=== PATIENT | female | born 1960 | race Two or more races ===

== ENCOUNTER 2016-10-20 09:22 | Inpatient (IN) | payer OTHER ==
[2016-10-13 11:41] VITALS: BMI 25.1
[~2016-10-20 09:22] MED LIST: CELECOXIB 200 MG CAPSULE PO ONE; GABAPENTIN 300 MG CAPSULE (FP) PO ONE; ONDANSETRON 4 MG/2 ML VIAL IVPUSH PRN; ROPIVACAINE 0.2% 400ML 400 ML ML NR ONE; ROPIVICAINE 0.2%/MORPH PF/KETOROLAC - 51ML DISP.SYRINGE IA ONE; TRANEXAMIC ACID 1000 MG/10 ML VIAL IVPUSH ONE; oxyCODONE HCL 5 MG TABLET PO PRN
[2016-10-20] MEDS ORDERED: CELECOXIB 200 MG CAPSULE ONE (11:03)
[2016-10-20] MEDS ORDERED: CEFAZOLIN 2 GM in DEXTROSE 5%-WATER - 50 ML IVPB ONE (12:30)
[2016-10-20] MEDS ORDERED: DEXAMETHASONE SOD PHOSPHATE/PF 10 MG/ML SDV ONE (12:53)
[2016-10-20] MEDS ORDERED: SODIUM CHLORIDE 0.9% P/F 10 ML VIAL IJ ONE (12:53)
[2016-10-20] MEDS ORDERED: BUPIVACAINE HCL/PF (5 MG/ML) 30 ML VIAL IJ ONE (12:53)
[2016-10-20] MEDS ORDERED: MIDAZOLAM HCL 2 MG/2 ML SINGLE DOSE VIAL ONE (12:53)
[2016-10-20] MEDS ORDERED: ROPIVACAINE HCL 0.5% 30ML VIAL ONE (13:26)
[2016-10-20] MEDS ORDERED: ROPIVICAINE 0.2%/MORPH PF/KETOROLAC - 51ML DISP.SYRINGE IA ONE ×3 (13:40→16:34)
[2016-10-20] MEDS ORDERED: TRANEXAMIC ACID 1000 MG/10 ML VIAL ONE ×3 (13:40→14:06)
[2016-10-20] MEDS ORDERED: ceFAZolin SODIUM 1 GM VIAL ONE (14:06)
[2016-10-20] MEDS ORDERED: TRANEXAMIC ACID 1000 MG/10 ML VIAL IVPB ONE ×2 (15:05→16:34)
[2016-10-20] MEDS ORDERED: MAG HYDROX/AL HYDROX/SIMETH 30 ML UNIT-DOSE CUP PO PRN (17:38)
[2016-10-20] MEDS ORDERED: MAGNESIUM HYDROX 2400MG/30ML ORAL SUSPENSION 30 ML CUP PO PRN (17:38)
[2016-10-20] MEDS ORDERED: LACTATED RINGERS SOLUTION 1,000 ML IV SCH (17:45)
[2016-10-20] MEDS: LACTATED RINGERS SOLUTION 1,000 ML IV SCH (18:14)
[2016-10-20] MEDS: ACETAMINOPHEN 325 MG TABLET (FP) PO SCH ×2 (18:14→20:56)
[2016-10-20] MEDS: ONDANSETRON 4 MG/2 ML VIAL IVPB PRN (18:43)
[2016-10-20] MEDS ORDERED: TRANEXAMIC ACID 1000 MG/10 ML VIAL IVPUSH ONE (19:00)
[2016-10-20] MEDS: CEFAZOLIN 1 GM/D5W 50 ML IVPB SCH (20:57)
[2016-10-20] MEDS: ASCORBIC ACID 500 MG TABLET (FP) PO SCH (21:33)
[2016-10-20] MEDS: ATORVASTATIN CA 40 MG TABLET (FP) PO SCH (21:33)
[2016-10-20] MEDS: oxyCODONE HCL 10 MG SUSTAINED ACTING TABLET PO SCH (21:33)
[2016-10-20] MEDS: GLIMEPIRIDE 2 MG TABLET (FP) PO SCH (21:33)
[2016-10-20] MEDS: LISINOPRIL 5 MG TABLET (FP) PO SCH (21:33)
[2016-10-20] MEDS: FERROUS SO4 325 MG TABLET (FP) PO SCH (21:33)
[2016-10-20] MEDS: CELECOXIB 200 MG CAPSULE PO SCH (21:33)
[2016-10-20] MEDS: SENNOSIDES/DOCUSATE COMBO (SENNA PLUS) TABLET (UD) PO SCH (21:34)
[2016-10-20] MEDS: GABAPENTIN 300 MG CAPSULE (FP) PO SCH ×2 (21:34→21:35)
[2016-10-20] MEDS: INSULIN SLIDING SCALE (NOVOLOG) 1 VIAL SQ SCH (21:38)
[2016-10-20] MEDS ORDERED: ONDANSETRON 4 MG/2 ML VIAL IVPUSH ONE (21:51)
--- NOTE | 2016-10-20 21:52 | CONSULT ---
Consultation: REQUESTING PROVIDER: Dr. Serrano CONSULT REQUEST: We have been asked to medically evaluate this patient for ( Medical Management). HISTORY OF PRESENT ILLNESS: This is a 56 y/o female with a PMHx of: DM, HTN, HLD. s/p L-TKR POD #0. Patient is AAOx3, reports nausea and vomiting x 1 when arrived to floor. Patient reports pain to surgical site 8/10. Patient reports full sensation to lower extremity. Patient reports voiding, no flatulence no BM. Patient denies fever, chills, cough, dizziness, SOB, CP, AP, diarrhea, dysuria. PAST MEDICAL HISTORY: DM HTN HLD PAST SURGICAL HISTORY: Right Knee Arthroscopy SOCIAL HISTORY: Tobacco: Never Alcohol: None Drugs: None Lives with spouse FAMILY HISTORY: Non- Contributory ALLERGIES: 3 Allergy/AdvReac Type Severity Reaction Status Date / Time No Known Allergies Allergy Verified 10/13/16 11:33 HOME MEDICATIONS: 3 Medication Instructions Recorded Atorvastatin Ca [Lipitor] 40 mg PO HS 10/13/16 Calcium Crb,Cit/D3/Min34/Norris 1 each PO DAILY 10/13/16 [Citracal + Bone Density Tablet] Glimepiride [Amaryl -] 4 mg PO HS 10/13/16 Lisinopril 5 mg PO HS 10/13/16 Metformin HCl [Metformin HCl ER] 1,000 mg PO BID 10/13/16 Multivits,Ca,Minerals/Iron/FA 1 each PO DAILY 10/13/16 [Women's Daily Formula Caplet] REVIEW OF SYSTEMS: CONSTITUTIONAL: Absent: fever, chills, diaphoresis, generalized weakness, malaise, loss of appetite, weight change HEENT: Absent: rhinorrhea, nasal congestion, throat pain, throat swelling, difficulty swallowing, mouth swelling, ear pain, eye pain, visual changes CARDIOVASCULAR: Absent: chest pain, syncope, palpitations, irregular heart rate, lightheadedness , peripheral edema RESPIRATORY: Absent: cough, shortness of breath, dyspnea with exertion, orthopnea, wheezing, stridor, hemoptysis GASTROINTESTINAL: nausea, vomiting Absent: abdominal pain, abdominal distension, diarrhea, constipation, melena, hematochezia GENITOURINARY: Absent: dysuria, frequency, urgency, hesitancy, hematuria, flank pain, genital pain MUSCULOSKELETAL: left knee pain Absent: myalgia, arthralgia, joint swelling, back pain, neck pain SKIN: Absent: rash, itching, pallor HEMATOLOGIC/IMMUNOLOGIC: Absent: easy bleeding, easy bruising, lymphadenopathy, frequent infections ENDOCRINE: Absent: unexplained weight gain, unexplained weight loss, heat intolerance, cold intolerance NEUROLOGIC: Absent: headache, focal weakness or paresthesias, dizziness, unsteady gait, seizure, mental status changes, bladder or bowel incontinence PSYCHIATRIC: Absent: anxiety, depression, suicidal or homicidal ideation, hallucinations. PHYSICAL EXAMINATION Vital Signs - 24 hr 3 10/20/16 10/20/16 10/20/16 11:16 11:20 11:42 Temperature 98.2 F 98.2 F Pulse Rate 83 83 Respiratory 18 18 Rate Blood Pressure 146/76 146/76 O2 Sat by Pulse 99 Oximetry (%) 10/20/16 10/20/16 10/20/16 17:35 17:40 17:45 Temperature 97.7 F 97.7 F 97.7 F Pulse Rate 61 62 63 Respiratory 11 L 1 L 12 Rate Blood Pressure 140/65 141/48 136/57 O2 Sat by Pulse 100 100 Oximetry (%) 10/20/16 10/20/16 10/20/16 17:50 18:05 18:20 Temperature 97.7 F 97.7 F 97.7 F Pulse Rate 67 61 65 Respiratory 12 12 14 Rate Blood Pressure 131/58 134/65 118/51 O2 Sat by Pulse 100 100 100 Oximetry (%) 10/20/16 10/20/16 10/20/16 18:35 18:46 18:48 Temperature 97.7 F 97.7 F 97.7 F Pulse Rate 66 64 61 Respiratory 12 18 18 Rate Blood Pressure 123/57 135/60 135/60 O2 Sat by Pulse 100 99 99 Oximetry (%) GENERAL: Awake, alert, and fully oriented, in no acute distress. HEAD: Normal with no signs of trauma. EYES: Pupils equal, round and reactive to light, extraocular movements intact, sclera anicteric, conjunctiva clear. No lid lag. EARS, NOSE, THROAT: Ears normal, nares patent, oropharynx clear without exudates. Moist mucous membranes. NECK: Normal range of motion, supple without lymphadenopathy, JVD, or masses. LUNGS: Breath sounds equal, clear to auscultation bilaterally. No wheezes, and no crackles. No accessory muscle use. HEART: Regular rate and rhythm, normal S1 and S2 without murmur, rub or gallop. ABDOMEN: Soft, nontender, not distended, hypoactive bowel sounds, no guarding, no rebound, no masses. No hepatomegaly or splenomegaly. MUSCULOSKELETAL: LROM LLE. LLE tenderness to palpation. Surgical dressing dry and intact. Normal range of motion at RUE, RLE, LUE joints. No bony deformities. No CVA tenderness. UPPER EXTREMITIES: 2+ pulses, warm, well-perfused. No cyanosis. No clubbing. Cap refill <2 seconds. No peripheral edema. LOWER EXTREMITIES: 2+ pulses, warm, well-perfused. No calf tenderness. No peripheral edema. NEUROLOGICAL: Cranial nerves II-XII intact. Normal speech. Gait not observed. PSYCHIATRIC: Cooperative. Good eye contact. Appropriate mood and affect. SKIN: Warm, dry, normal turgor, no rashes or lesions noted. Laboratory Results - last 24 hr 10/20/16 10/20/16 11:27 18:43 POC Glucometer 128 267 Active Medications Generic Name Dose Route Start Last Admin Trade Name Freq PRN Reason Stop Dose Admin Acetaminophen 650 mg 10/20/16 09:15 10/20/16 20:56 Tylenol - PO 10/23/16 09:14 650 mg Q6H AMANDA Administration Al Hydroxide/Mg Hydroxide 30 ml 10/20/16 17:38 10/20/16 21:35 Mylanta Oral Suspension - PO 30 ml Q4H PRN Administration DYSPEPSIA Ascorbic Acid 500 mg 10/20/16 22:00 10/20/16 21:33 Vitamin C - PO 500 mg BID AMANDA Administration Aspirin 325 mg 10/21/16 08:00 Asa - PO DAILY@0800 AMANDA Atorvastatin Calcium 40 mg 10/20/16 22:00 10/20/16 21:33 Lipitor - PO 40 mg HS AMANDA Administration Calcium Carbonate/Cholecalciferol 1 tab 10/21/16 10:00 Os-Eriberto 500+D - PO DAILY AMANDA Celecoxib 200 mg 10/20/16 22:00 10/20/16 21:33 Celebrex - PO 200 mg BID AMANDA Administration Fentanyl 25 mcg 10/20/16 09:13 Sublimaze Injection - IVPUSH 10/23/16 09:14 [id number] PRN PAIN Ferrous Sulfate 325 mg 10/20/16 22:00 10/20/16 21:33 Feosol - PO 325 mg BID AMANDA Administration Gabapentin 300 mg 10/20/16 22:00 10/20/16 21:34 Neurontin - PO 300 mg BID AMANDA Administration Gabapentin 300 mg 10/20/16 22:00 10/20/16 21:35 Neurontin - PO 10/23/16 21:59 300 mg BID AMANDA Administration Glimepiride 4 mg 10/20/16 22:00 10/20/16 21:33 Amaryl - PO 4 mg HS AMANDA Administration Lactated Ringer's 1,000 mls @ 125 mls/hr 10/20/16 09:15 10/20/16 18:14 Lactated Ringers Solution IV Not Given ASDIR AMANDA Cefazolin Sodium 50 mls @ 100 mls/hr 10/20/16 21:30 10/20/16 20:57 Ancef 1 Gm Premixed Ivpb - IVPB 10/21/16 05:59 100 mls/hr Q8H AMANDA Administration Lactated Ringer's 1,000 mls @ 125 mls/hr 10/20/16 17:45 10/20/16 18:15 Lactated Ringers Solution IV 10/21/16 06:00 Not Given ASDIR AMANDA Insulin Aspart 1 vial 10/20/16 22:00 10/20/16 21:38 Novolog Vial Sliding Scale - SQ 4 units ACHS AMANDA Administration Protocol Lisinopril 5 mg 10/20/16 22:00 10/20/16 21:33 Prinivil PO 5 mg HS AMANDA Administration Magnesium Hydroxide 30 ml 10/20/16 17:38 Milk Of Magnesia - PO PRN PRN CONSTIPATION Metformin HCl 1,000 mg 10/21/16 07:00 Glucophage - PO BIDAC AMANDA Multivitamins/Minerals 1 each 10/21/16 10:00 Theragran-M PO DAILY AMANDA Multivitamins/Minerals/Vitamin C 1 tab 10/21/16 10:00 Tab-A-Vit - PO DAILY AMANDA Ondansetron HCl 4 mg 10/20/16 17:38 10/20/16 18:43 Zofran Injection IVPB 4 mg Q6H PRN Administration NAUSEA Oxycodone HCl 10 mg 10/20/16 22:00 10/20/16 21:33 Oxycontin - PO 10/23/16 21:59 10 mg BID AMANDA Administration Oxycodone HCl 5 mg 10/20/16 09:14 Roxicodone - PO 10/23/16 09:14 Q4H PRN PAIN Oxycodone HCl 10 mg 10/20/16 09:14 Roxicodone - PO 10/23/16 09:15 Q4H PRN PAIN Pantoprazole Sodium 40 mg 10/21/16 10:00 Protonix - PO DAILY AMANDA Senna/Docusate Sodium 1 tablet 10/20/16 22:00 10/20/16 21:34 Pericolace - PO 1 tablet BID AMANDA Administration ASSESSMENT/PLAN: This is a 56 y/o female with a PMHx of: DM, HTN, HLD. s/p L- TKR POD #0. 1. Continue Ortho Regimen 2. Monitor BGMs 3. Continue home meds 4. Monitor CBC, BMP 5. PT 6. Incentive Spirometer Dispo: We will continue to follow the patient. Thank you for this consultative opportunity. Problem List - Problems (1) Status post left knee replacement Code(s): Z96.652 - PRESENCE OF LEFT ARTIFICIAL KNEE JOINT (2) Diabetes mellitus Code(s): E11.9 - TYPE 2 DIABETES MELLITUS WITHOUT COMPLICATIONS (3) HTN (hypertension) Code(s): I10 - ESSENTIAL (PRIMARY) HYPERTENSION (4) Hyperlipidemia Code(s): E78.5 - HYPERLIPIDEMIA, UNSPECIFIED (5) DVT prophylaxis Code(s): MQZ7408 - Visit type - Emergency Visit Emergency Visit: No - New Patient This patient is new to me today: Yes Date on this admission: 10/20/16 - Critical Care Critical Care patient: No
[2016-10-20] MEDS: oxyCODONE HCL 5 MG TABLET PO PRN (22:14)
[2016-10-21] MEDS: ACETAMINOPHEN 325 MG TABLET (FP) PO SCH ×4 (03:19→21:15)
[2016-10-21] MEDS: oxyCODONE HCL 5 MG TABLET PO PRN ×3 (04:17→21:15)
[2016-10-21] MEDS: CEFAZOLIN 1 GM/D5W 50 ML IVPB SCH (05:34)
[2016-10-21] MEDS: INSULIN SLIDING SCALE (NOVOLOG) 1 VIAL SQ SCH ×3 (06:22→21:36)
[2016-10-21 08:23] LABS: ANION GAP 8 (8-16); CO2 23 mmol/L (22-28); CREATININE 0.6 mg/dl (0.6-1.3); GLUCOSE,RANDOM 188 mg/dl (74-106)
[2016-10-21 08:35] LABS: MCH 27.3 pg (25.7-33.7); MCHC 33.2 g/dl (32.0-36.0); MEAN CELL VOLUME 82.3 fl (80-96); PLATELET COUNT 177 K/MM3 (134-434); RDW 12.8 % (11.6-15.6); WHITE BLOOD COUNT 13.6 K/mm3 (4.0-10.8)
--- NOTE | 2016-10-21 09:25 | PN ---
[id number]: patient is a 56 y/o female with a PMHx of: DM, HTN, HLD. patient is s/p L-TKR POD # 1 ([place]) Vital Signs Period Temp Pulse Resp BP Sys/Lewis Pulse Ox Last 24 Hr 97.7 F-98.2 F 59-83 1-18 111-146/48-76 98-100 GENERAL: The patient is awake, alert, and fully oriented, in no acute distress. HEAD: Normal with no signs of trauma. EYES: PERRL, extraocular movements intact, sclera anicteric, conjunctiva clear. No ptosis. ENT: Ears normal, nares patent, oropharynx clear without exudates, moist mucous membranes. NECK: Trachea midline, full range of motion, supple. LUNGS: Breath sounds equal, clear to auscultation bilaterally, no wheezes, no crackles, no accessory muscle use. HEART: Regular rate and rhythm, S1, S2 without murmur, rub or gallop. ABDOMEN: Soft, nontender, nondistended, normoactive bowel sounds, no guarding, no rebound, no hepatosplenomegaly, no masses. EXTREMITIES: 2+ pulses, warm, well-perfused, no edema. LEFT LOWER EXTREMITY: PHYSICAL DRESSING CLEAN DRY AND INTACT LESS THAN 3 SECOND CAPILLARY REFILL LESS FOR PULSE. pATIENT ABLE TO MOVE THE DIGITS OF THE FOOT WITHOUT ANY DIFFICULTY. NEUROLOGICAL: Cranial nerves II through XII grossly intact. Normal speech, gait not observed. PSYCH: Normal mood, normal affect. SKIN: Warm, dry, normal turgor, no rashes or lesions noted Laboratory Results - last 24 hr 10/20/16 10/20/16 10/20/16 11:27 18:43 21:31 WBC RBC Hgb Hct MCV MCHC RDW Plt Count MPV Sodium Potassium Chloride Carbon Dioxide Anion Gap BUN Creatinine POC Glucometer 128 267 230 Random Glucose Calcium 10/21/16 10/21/16 10/21/16 06:20 07:50 07:50 WBC 13.6 H RBC 3.89 Hgb 10.6 L Hct 32.0 L MCV 82.3 MCHC 33.2 RDW 12.8 Plt Count 177 MPV 11.0 Sodium 131 L Potassium 4.4 Chloride 100 Carbon Dioxide 23 Anion Gap 8 BUN 11 Creatinine 0.6 POC Glucometer 147 Random Glucose 188 H Calcium 9.0 Active Medications Generic Name Dose Route Start Last Admin Trade Name New PRN Reason Stop Dose Admin Acetaminophen 650 mg 10/20/16 09:15 10/21/16 03:19 Tylenol - PO 10/23/16 09:14 Not Given Q6H AMANDA Al Hydroxide/Mg Hydroxide 30 ml 10/20/16 17:38 10/20/16 21:35 Mylanta Oral Suspension - PO 30 ml Q4H PRN Administration DYSPEPSIA Ascorbic Acid 500 mg 10/20/16 22:00 10/20/16 21:33 Vitamin C - PO 500 mg BID AMANDA Administration Aspirin 325 mg 10/21/16 08:00 Asa - PO DAILY@0800 AMANDA Atorvastatin Calcium 40 mg 10/20/16 22:00 10/20/16 21:33 Lipitor - PO 40 mg HS AMANDA Administration Calcium Carbonate/Cholecalciferol 1 tab 10/21/16 10:00 Os-Eriberto 500+D - PO DAILY AMANDA Celecoxib 200 mg 10/20/16 22:00 10/20/16 21:33 Celebrex - PO 200 mg BID AMANDA Administration Fentanyl 25 mcg 10/20/16 09:13 Sublimaze Injection - IVPUSH 10/23/16 09:14 [id number] PRN PAIN Ferrous Sulfate 325 mg 10/20/16 22:00 10/20/16 21:33 Feosol - PO 325 mg BID AMANDA Administration Gabapentin 300 mg 10/20/16 22:00 10/20/16 21:34 Neurontin - PO 300 mg BID AMANDA Administration Gabapentin 300 mg 10/20/16 22:00 10/20/16 21:35 Neurontin - PO 10/23/16 21:59 300 mg BID AMANDA Administration Glimepiride 4 mg 10/20/16 22:00 10/20/16 21:33 Amaryl - PO 4 mg HS AMANDA Administration Lactated Ringer's 1,000 mls @ 125 mls/hr 10/20/16 09:15 10/20/16 18:14 Lactated Ringers Solution IV Not Given ASDIR [facility] Insulin Aspart 1 vial 10/20/16 22:00 10/21/16 06:22 Novolog Vial Sliding Scale - SQ Not Given ACHS [facility] Protocol Lisinopril 5 mg 10/20/16 22:00 10/20/16 21:33 Prinivil PO 5 mg HS AMANDA Administration Magnesium Hydroxide 30 ml 10/20/16 17:38 Milk Of Magnesia - PO PRN PRN CONSTIPATION Metformin HCl 1,000 mg 10/21/16 07:00 Glucophage - PO BIDAC AMANDA Multivitamins/Minerals 1 each 10/21/16 10:00 Theragran-M PO DAILY AMANDA Multivitamins/Minerals/Vitamin C 1 tab 10/21/16 10:00 Tab-A-Vit - PO DAILY AMANDA Ondansetron HCl 4 mg 10/20/16 17:38 10/20/16 18:43 Zofran Injection IVPB 4 mg Q6H PRN Administration NAUSEA Oxycodone HCl 10 mg 10/20/16 22:00 10/20/16 21:33 Oxycontin - PO 10/23/16 21:59 10 mg BID AMANDA Administration Oxycodone HCl 5 mg 10/20/16 09:14 Roxicodone - PO 10/23/16 09:14 Q4H PRN PAIN Oxycodone HCl 10 mg 10/20/16 09:14 10/21/16 04:17 Roxicodone - PO 10/23/16 09:15 10 mg Q4H PRN Administration PAIN Pantoprazole Sodium 40 mg 10/21/16 10:00 Protonix - PO DAILY [facility] Senna/Docusate Sodium 1 tablet 10/20/16 22:00 10/20/16 21:34 Pericolace - PO 1 tablet BID AMANDA Administration ASSESSMENT/PLAN: 1) ms s/p left TKR, pod #1 - physical therapy as per orthopedist - Continue incentive spirometry - When necessary pain medication 2) endo niddm - Fingersticks before meals and at bedtime with regular insulin coverage - continue glucophage F/E/N - Diabetic diet ppx - DVT PPX as per ortho - protonix - oob - scd/salud Dispo: We will continue to follow the patient. Thank you for this consultative opportunity. Visit type - Emergency Visit Emergency Visit: Yes ED Registration Date: 10/20/16 Care time: The patient presented to the Emergency Department on the above date and was hospitalized for further evaluation of their emergent condition. - New Patient This patient is new to me today: No - Critical Care Critical Care patient: No - Discharge Referral Referred to [facility] Med P.C.: No
[2016-10-21] MEDS: oxyCODONE HCL 10 MG SUSTAINED ACTING TABLET PO SCH ×2 (09:29→21:16)
[2016-10-21] MEDS: ASPIRIN 325 MG TABLET PO SCH (09:30)
[2016-10-21] MEDS: ONDANSETRON 4 MG/2 ML VIAL IVPB PRN ×2 (09:31→19:53)
[2016-10-21] MEDS: CELECOXIB 200 MG CAPSULE PO SCH ×2 (09:35→21:13)
[2016-10-21] MEDS: GABAPENTIN 300 MG CAPSULE (FP) PO SCH ×3 (09:36→22:08)
[2016-10-21] MEDS: CALCIUM 500MG/VIT-D 200 UNITS COMBO TABLET (FP) PO SCH (09:36)
[2016-10-21] MEDS: PANTOPRAZOLE 40 MG TABLET (FP) PO SCH (09:36)
[2016-10-21] MEDS: FERROUS SO4 325 MG TABLET (FP) PO SCH ×2 (09:36→21:13)
[2016-10-21] MEDS: MULTIVITAMINS THER W-MINERALS COMBO TABLET (FP) PO SCH (09:37)
[2016-10-21] MEDS: ASCORBIC ACID 500 MG TABLET (FP) PO SCH ×2 (09:37→21:13)
[2016-10-21] MEDS ORDERED: MULTIVITAMINS (DAILY MVI) TABLET (FP) PO SCH (10:00)
[2016-10-21] MEDS: SENNOSIDES/DOCUSATE COMBO (SENNA PLUS) TABLET (UD) PO SCH ×2 (10:00→21:11)
--- NOTE | 2016-10-21 10:10 | OP ---
DATE OF OPERATION: 10/20/2016 SURGEON: Abelino Henao MD ANESTHESIOLOGIST: Carmen Sparks MD [employer]: MALCOLM Novak, whose skilled surgical assistance was necessary for the retraction and protection of vital structures, for the handling and implementation of precise and delicate surgical instrumentation, as well as the overall safe conveyance of the procedure. TYPE OF ANESTHESIA: An adductor canal block with an indwelling catheter, as well as spinal. A mixture of ropivacaine, Duramorph, and Toradol was instilled into the knee for additional analgesia. PREOPERATIVE DIAGNOSIS: Severe left knee osteoarthritis with varus deformity. POSTOPERATIVE DIAGNOSIS: Severe left knee osteoarthritis with varus deformity. PROCEDURE: Computer navigated left total knee replacement. HARDWARE USED: A Tristen and Wisemblyuy PFC sigma PCL-retaining knee replacement with a size 3 press-fit femur; a size 3 cemented tibia; with a 10-mm polyethylene tray; patella was left unresurfaced. One bag of bone cement was used. This was processed in a vacuum mixing bowl. BLOOD LOSS: Approximately 100 mL. ANTIBIOTICS: Kefzol was given preoperatively for prophylaxis against infection. An additional gram of Kefzol was given at the time of wound closure. Tranexamic acid 1 g was given preoperatively. A second gram was given at the time of wound closure. A third gram was instilled into the wound at the time of wound closure. FLUID GIVEN: Crystalloid. COMPLICATIONS: There were no complications. INDICATIONS: The patient is a 56-year-old female with a past medical history significant for pnp-dghvfwt-hankizgwg diabetes, hypertension, as well as hypothyroidism. She has a long-standing history of significant bilateral knee osteoarthritis, left more severe than the right. She has been participating in physical therapy with a home exercise program for several months without any relief from discomfort. She said the pain at times in the left knee is so intense she "can't handle it." She describes the pain as sharp and continuous in nature and has been worsening over the past 3 years. She had a cortisone injection in February 2016 without significant relief. She has tried Tylenol without significant relief. She has no complaints of back pain, groin pain. No complaints of numbness or tingling in her toes. Treatment options were reviewed with the patient including nonoperative treatment. We discussed both operative and nonoperative treatment at length, including additional therapy, additional injection therapy, medication, use of a cane versus surgery. After a thorough discussion of the treatment options, the patient wished to proceed with surgery. The risks of surgery were explained to include but not be limited to infection; stiffness; continued pain; a chance that her knee replacement may loosen up sooner than its intended lifespan; given her relatively young age, it is likely she will need at least 1 additional procedure on her knee; chance that she could have a massive blood loss requiring transfusion; chance she could have a blood clot that could spread from her legs to her lungs and even cause and this can occur despite DVT prophylaxis; chance that should she develop an infection it would be a complete disaster, necessitating removing her knee, placing her on long-term antibiotics; and chance that should the infection not be curable she could be left without a knee replacement; and an unlikely, but possible scenario, should she develop life-threatening infection after a knee replacement, may require an amputation. The patient understands that not all her pain may be relieved from knee replacement and there is no guarantee of results with this type of surgery. She understands the risks that are involved. She has identified her left knee as the operative site which was confirmed by the operating room staff, which I signed, and she agrees to proceed with the planned procedure. The procedure is as follows. DESCRIPTION OF PROCEDURE: After administration of an adductor canal block with an indwelling catheter in the preoperative holding area, the patient was brought into the operating room where a tourniquet was placed high on the left leg and the left leg was then prepped and draped in the usual sterile manner. The tourniquet was not inflated during the procedure. A standard midline incision approximately 12 cm in length was made. The incision was carried down through the subcutaneous tissues using the electrocautery device and device to maintain hemostasis. The quadriceps tendon was entered superiorly at the junction between the medial one-third and the lateral two-thirds. The incision through the quadriceps tendon was carried down, curving medially around the medial patellar retinaculum, leaving a small cuff of tissue for later repair and reapproximation. The patella was everted. Osteophytes and menisci were removed. The ACL was released. PCL was recessed. The patient had obvious, severe medial compartment osteoarthritis with the patellofemoral and lateral compartments less affected. She had approximately 7 degrees of varus deformity which corrected somewhat to approximately 5 degrees with a medial release. Two sets of 4-mm guide pins were then placed in the medial aspect of the proximal tibia and medial aspect of the distal femur, to which the then attached. The patient's hip center of rotation and bony anatomy were then entered into the computer navigation device. Then, the femur was machined to correct the patient's varus deformity. The femur and tibia were machined to accept size 3 femoral and tibial components. The trial components were then packed in place and taken through a range of motion with a trial 10-mm polyethylene tibial spacer. The knee had full and easy extension, full and easy flexion, with balanced flexion-extension gaps, and good tracking of the patella with the trial components. The trial components were then removed. One bag of bone cement was then mixed in a vacuum mixing bowl and the exposed bony cancellous surfaces were then prepared with jet lavage with antibiotic normal saline solution. The cement was then pre-coated onto the tibial component and then finger-pressurized onto the exposed bony cancellous surfaces of the proximal tibia. The tibial component was then impacted in place and then the press-fit femoral component was then impacted in place. This was held in extension with the trial polyethylene spacer until the cement had hardened. All excess bone cement was then removed. The knee was then again taken through a range of motion and found to have equal stability and excellent balance equal to that of the trial. The final polyethylene spacer was then impacted in place, after thorough irrigation with copious amounts of antibiotic normal saline solution. The knee was taken through a range of motion, with full and easy extension, and full and easy flexion, with good tracking of the patella, balanced flexion-extension gaps, and neutral varus-valgus alignment. A dilute Betadine solution was instilled into the wound and let to sit for 3 minutes. This was then evacuated. The wound was then once again irrigated with copious amounts of normal saline solution using the jet lavage. The extensor mechanism was then reapproximated to itself using [id number] interrupted number 2 FiberWire sutures and number 1 Vicryl sutures. Tranexamic acid 1 g and the pain cocktail instilled into the knee. The deeper subcutaneous tissues were closed with 0 and 2-0 Vicryl sutures and then a running subcuticular suture with a Stratafix suture was then applied with the knee in maximal flexion. Dermabond was then applied to seal the wound, as well as to seal the guide pin sites. After the Dermabond had hardened, an Aquacel dressing was then applied, ABD pad was applied, and a thigh-high KAREEM stocking was then placed. Of note, during the procedure, the patient had thigh-high KAREEM stocking and sequential compression device on her nonoperative leg. Postoperatively, she will have DVT prophylaxis with early ambulation, bilateral KAREEM stockings, sequential compression devices, and aspirin for 4 weeks after the surgery. We are not going to use a Mena catheter if at all possible to prevent a dreaded urinary tract infection and possible periprosthetic infection. We are going to discontinue prophylactic antibiotics within 24 hours. ABELINO HENAO M.D. [id number]
--- NOTE | 2016-10-21 14:24 | PN ---
Progress Note (short form) - Note Progress Note: 56F POD1 s/p left total knee replacement under spinal anesthetic and continuous adductor canal catheter doing well. Pt states that she has no pain, AVSS, reports no anesthetic complications. Sensory and motor function intact in both lower extremities.
[2016-10-21] MEDS: metFORMIN HCL 500 MG TABLET (FP) PO SCH (17:03)
[2016-10-21] MEDS: ATORVASTATIN CA 40 MG TABLET (FP) PO SCH (21:13)
[2016-10-21] MEDS: LISINOPRIL 5 MG TABLET (FP) PO SCH (21:23)
[2016-10-21] MEDS: GLIMEPIRIDE 2 MG TABLET (FP) PO SCH (21:36)
[2016-10-21] MEDS: LACTATED RINGERS SOLUTION 1,000 ML IV SCH (22:06)
[2016-10-22] MEDS: ACETAMINOPHEN 325 MG TABLET (FP) PO SCH ×2 (05:13→09:12)
[2016-10-22] MEDS: oxyCODONE HCL 5 MG TABLET PO PRN (05:13)
[2016-10-22 06:18] VITALS: BP 116/53; PULSE 73; TEMP 98.5
[2016-10-22] MEDS: INSULIN SLIDING SCALE (NOVOLOG) 1 VIAL SQ SCH ×2 (06:23→10:01)
[2016-10-22] MEDS: metFORMIN HCL 500 MG TABLET (FP) PO SCH ×2 (06:28→10:01)
[2016-10-22 09:03] LABS: MCH 27.4 pg (25.7-33.7); MCHC 33.8 g/dl (32.0-36.0); MEAN CELL VOLUME 81.1 fl (80-96); MEAN PLT VOLUME 11.4 fl (7.5-11.1); PLATELET COUNT 214 K/MM3 (134-434); RDW 12.9 % (11.6-15.6); WHITE BLOOD COUNT 12.7 K/mm3 (4.0-10.8)
[2016-10-22] MEDS ORDERED: PT OWN MED DRAWER 7, Y5N ONE (09:10)
[2016-10-22] MEDS: MULTIVITAMINS THER W-MINERALS COMBO TABLET (FP) PO SCH (09:12)
[2016-10-22] MEDS: PANTOPRAZOLE 40 MG TABLET (FP) PO SCH (09:12)
[2016-10-22] MEDS: ASPIRIN 325 MG TABLET PO SCH (09:12)
[2016-10-22] MEDS: CALCIUM 500MG/VIT-D 200 UNITS COMBO TABLET (FP) PO SCH (09:12)
[2016-10-22] MEDS: SENNOSIDES/DOCUSATE COMBO (SENNA PLUS) TABLET (UD) PO SCH (09:12)
[2016-10-22] MEDS: CELECOXIB 200 MG CAPSULE PO SCH (09:12)
[2016-10-22] MEDS: oxyCODONE HCL 10 MG SUSTAINED ACTING TABLET PO SCH (09:12)
[2016-10-22] MEDS: LACTATED RINGERS SOLUTION 1,000 ML IV SCH (09:13)
[2016-10-22] MEDS: FERROUS SO4 325 MG TABLET (FP) PO SCH (09:13)
[2016-10-22] MEDS: ASCORBIC ACID 500 MG TABLET (FP) PO SCH (09:13)
[2016-10-22] MEDS: GABAPENTIN 300 MG CAPSULE (FP) PO SCH ×2 (09:13→10:01)
--- NOTE | 2016-10-22 13:12 | PATH ---
Surgical Pathology Report Patient Name: ZACHARIAH ESPINOSA Med. Rec. #: [id number] /Age/Gender: 1960 (Age: 56) / F Account: [id number] Location: [facility] MED-SURG Taken: 10/20/2016 Received: 10/20/2016 Reported: 10/22/2016 Physicians: Ankit Serrano M.D. Specimen(s) Received LEFT KNEE BONES Clinical History Unilateral primary osteoarthritis Final Diagnosis BONE AND SOFT TISSUE, LEFT KNEE, REPLACEMENT: DEGENERATIVE JOINT DISEASE. Electronically Signed Shakir Ferrer M.D. Gross Description Received in formalin labeled "left knee bones," is a 9.5 x 9.0 x 1.4 cm aggregate of multiple irregular portions of bone and soft tissue. The tibial plateau measures 7.5 x 5.0 x 1.4 cm. There are multiple areas of eburnation present measuring up to 3 cm in greatest dimension. The remaining articular surfaces are samaniego-yellow and diffusely granular. The underlying trabecular bone is yellow and hard. Glass Blower Helper sections are submitted in one cassette, following decalcification. 10/21/201610/21/2016
--- NOTE | 2016-10-22 14:02 | PN ---
Progress Note (short form) - Note Progress Note: S: Pt. comfortable O: VAS 4/10 Back: mild tenderness at spinal site. no inderation, no erythema A/P: POD #2 s/p left tkr. doing well 1. continuous adductor canal cath pulled. tip intact 2. mild back pain at spinal site without neurologic symptoms. observation for now 3. continue pain meds as ordered
== END 2016-10-22 12:43 | disposition home health service (06) | DRG 302 ==
LOC: FM/S 10:10
PROVIDERS: ADMIT Orthopaedic Surgery; ATTEND Orthopaedic Surgery
PROC: 8E0YXBZ Computer Assisted Procedure of Lower Extremity (ICD-10-PCS; 2016-10-20)
PROC: 0SRD0J9 Replacement of Left Knee Joint with Synthetic Substitute, Cemented, Open Approach (ICD-10-PCS; principal; 2016-10-20 14:57)
DX: M17.12 Unilateral primary osteoarthritis, left knee (principal); M21.162 Varus deformity, not elsewhere classified, left knee; E11.9 Type 2 diabetes mellitus without complications; I10 Essential (primary) hypertension; E03.9 Hypothyroidism, unspecified; E78.5 Hyperlipidemia, unspecified; R11.2 Nausea with vomiting, unspecified; Z79.84 Long term (current) use of oral hypoglycemic drugs
CPT/HCPCS: 36415; 73560-TC-LT; 80048; 85027; 88305-TC; 88311-TC; 94760; 97116-GP; 97162-PG